=== PATIENT | female | born 1970 | race Caucasian/White ===

== ENCOUNTER 2016-06-23 11:57 | Emergency (ER) | payer OTHER ==
[~2016-06-23] VITALS: Ht 165.1 cm; Wt 122.7 kg
[~2016-06-23 11:57] MED LIST: CYCL10TA9 PO
[2016-06-23 12:01] VITALS: BP 139/91; PULSE 64; RESP 21; O2SAT 95
--- NOTE | 2016-06-23 12:04 | ED.REPORT ---
HPI-Extremity Problem Lower Date of Service June 23, 2016 ED Provider: History of Present Illness: tripped last night around 1030 at home, pain in the right foot, mid foot pain. mickey Moise is primary care, on a pain contract with him. able to walk but with difficulty. chronic back and hip pain.have not taken anything besides the vicodin. work at [employer] in the [employer] station.4/10 with sitting 10/10 with walking. Is scheduled for surgery on her left foot next Tuesday for tendonitis on the achilles. Is wearing a walking boot on the left foot. Nursing Notes Stated Complaint: FALL, HEARD RIGHT FOOT POP Chief Complaint: Extremity Trauma Nursing Notes Reviewed: Yes Allergies: Coded Allergies: Sulfa (Sulfonamide Antibiotics) (Verified Allergy, Unknown, Nausea, Vomiting, 06/23/16) Scheduled Cyclobenzaprine (Cyclobenzaprine) 10 Mg Tablet 10 MG PO TID General Time Seen by MD: 12:04 Chief Complaint Foot injury right Hx Obtained From: Patient Onset Occurred: Yesterday Past Medical History Past Medical History arthritis Reports: Hypertension, Denies: Asthma Reports: Migraines, Thyroid disease Past Surgical History eye cyst removal wisdom teeth removal D&C epicondylitis surgery Family History Reports: Cancer Smoking History Current Every Day Smoker Social History Alcohol Use: "Social" Drug Use: Denies drug use Occupation work at [employer], lives with roommate 1 story house with a ramp 06/23/2016 Ambulatory Status Independent Review of Systems Basic Review of Systems Eyes: Vision NL, No discharge : No dysuria, No frequency Psychiatric: Normal thought content Physical Exam Initial Vital Signs Vital Signs (First) Date Time Temp Pulse Resp B/P Pulse Ox O2 Delivery O2 Flow Rate FiO2 06/23/16 12:01 37.0 64 21 139/91 95 Room Air Initial VS: Reviewed, Vital signs normal General/Constitutional: Well-developed, Well-nourished Head / Eyes: Atraumatic, Normocephalic, PERRL ENT: Mucous membranes moist, Conjunctiva normal, No scleral icterus Neck: Supple, Non-tender, Full range of motion Respiratory: Breath sounds normal, Clear to auscultation, No respiratory distress Cardiovascular: Regular rate & rhythm, Heart sounds normal, Intact distal pulses Abdomen / GI: Soft, Non-tender, No guarding, No rebound, No distention Back: No CVA tenderness Lymphatic: No lymphadenopathy Upper Extremities: Vascular intact, Neuro intact, No swelling, No tenderness Skin: Warm, Dry, No cyanosis Neurologic: Alert, Oriented, Nonfocal Psychiatric: Mood/affect normal, Behavior normal, Normal thought content Lower Extremity / Pelvis / MS: Atraumatic, Inspection NL, Full range of motion , No swelling, Non-tender, No erythema mild swelling right mid foot. sensation intact distally. cap refill is less than 3 sec. FROM but with tenderness. General/Constitutional: Awake, Alert, No acute distress, Well appearing, Well developed, Well hydrated, Well nourished, Cooperative, Not toxic appearing Appearance / Presentation: Positive: Obese, morbidly Respiratory / Chest: Atraumatic, Breath sounds NL, Breath sounds = bilat, No respiratory distress Cardiovascular: Heart rate NL, Regular rhythm, Heart sounds NL Interpretation & Diagnostics X-Ray Interpretation Xray Interpretation: PROCEDURE: X-RAY RIGHT ANKLE, MINIMUM THREE VIEWS ([id number]) INDICATIONS: TRIPPED TECHNIQUE: 3 views of the ankle were acquired. COMPARISON: None. FINDINGS: Bones: No fractures or dislocations. Ankle mortise is normally aligned. No suspicious bony lesions. Soft tissues: No tibiotalar joint effusion. Achilles tendon appears normal. Soft tissue swelling. IMPRESSION: No displaced fracture seen. If there is continued pain, followup exam or additional imaging such as MRI or CT could be performed for further assessment. Dictated by: Luis VANCE Interpreted: Agnes Mcintyre MD on 06/23/2016 at 13:04 Transcribed by: ANA LAURA on 06/23/2016 at 13:04 PROCEDURE: X-RAY RIGHT FOOT COMPLETE, MINIMUM THREE VIEWS ([id number]) INDICATIONS: TRIPPED TECHNIQUE: 3 views of the foot were acquired. COMPARISON: None. FINDINGS: Bones: No fractures or dislocations. No suspicious bony lesions. Soft tissues: No tibiotalar joint effusion. Achilles tendon appears normal. IMPRESSION: No displaced fracture seen. If there is continued pain, followup exam or additional imaging such as MRI or CT could be performed for further assessment. Dictated by: Luis VANCE Interpreted: Agnes Mcintyre MD on 06/23/2016 at 13:03 Transcribed by: ANA LAURA on 06/23/2016 at 13:04 Re-Eval/Medical Decision Med Decision/Clinical Course 45 year old female presents for evualation of right foot pain after falling at home. Patient states able to walk but with difficulty. Patient has planned surgery for next tuesday for achilles tendon. Has a walking boot on the left foot. X-ray evualation is negative, exam is reassuring. No sign of compartment syndrome or fracture. Discharge & Departure Impression: Primary Impression: Foot sprain Disposition: Home Patient Instructions: Foot Sprain (ED), Crutch Instructions (ED) Additional Instructions: The x-ray of your ankle and foot are negative for any fracture.. Continue with wearing the splint. Use crutches as needed for ambulation. Continue with ice 15 minutes on and 15 minutes off for 3 to [address] Kunz and let him know what happened. Your surgery may need to be delayed. Continue with the vicodin that you are currently taking. Use ketorolac 10 mg up to 4 times a day as needed for discomfort. Referrals: Mickey Moise MD (PCP) EDSupervising Provider for APC: Kristi Álvarez MD copies to: Mickey Moise MD, Sue ARNP June 23, 2016 12:04
--- NOTE | 2016-06-23 13:04 | DRSVH ---
PROCEDURE: X-RAY RIGHT FOOT COMPLETE, MINIMUM THREE VIEWS ([id number]) INDICATIONS: TRIPPED TECHNIQUE: 3 views of the foot were acquired. COMPARISON: None. FINDINGS: Bones: No fractures or dislocations. No suspicious bony lesions. Soft tissues: No tibiotalar joint effusion. Achilles tendon appears normal. IMPRESSION: No displaced fracture seen. If there is continued pain, followup exam or additional chepe ging such as MRI or CT could be performed for further assessment. Dictated by: Luis Peña [facility] Interpreted: Agnes Mcintyre MD on 06/23/2016 at 13:03 Transcribed by: ANA LAURA on 06/23/2016 at 13:04 Approved by: Agnes Mcintyre MD, PhD on 06/23/2016 at 16:36
--- NOTE | 2016-06-23 13:04 | DRSVH ---
PROCEDURE: X-RAY RIGHT ANKLE, MINIMUM THREE VIEWS ([id number]) INDICATIONS: TRIPPED TECHNIQUE: 3 views of the ankle were acquired. COMPARISON: None. FINDINGS: Bones: No fractures or dislocations. Ankle mortise is normally aligned. No suspicious bony lesions . Soft tissues: No tibiotalar joint effusion. Achilles tendon appears normal. Soft tissue swelling. IMPRESSION: No displaced fracture seen. If there is continued pain, followup exam or additional chepe ging such as MRI or CT could be performed for further assessment. Dictated by: Luis Peña [facility] Interpreted: Agnes Mcintyre MD on 06/23/2016 at 13:04 Transcribed by: ANA LAURA on 06/23/2016 at 13:04 Approved by: Agnes Mcintyre MD, PhD on 06/23/2016 at 16:36
[2016-06-23 14:24] VITALS: BP 127/67; PULSE 87; RESP 16; O2SAT 97
[2016-07-28] MEDS ORDERED: DEP250A PO (14:33)
[2016-07-28] MEDS ORDERED: FLUO40CA12 PO (14:33)
[2016-07-28] MEDS ORDERED: LORA10CA PO (14:33)
[2016-07-28] MEDS ORDERED: NARA2.5T PO (14:33)
[2016-07-28] MEDS ORDERED: MELO-253 PO (14:33)
[2016-07-28] MEDS ORDERED: LEVO75TA4 PO (14:33)
[2016-07-28] MEDS ORDERED: SIMV40TA5 PO (14:33)
[2016-07-28] MEDS ORDERED: ALPR0.5T PO (14:33)
[2016-07-28] MEDS ORDERED: TOPI100T32 PO (14:33)
[2016-07-28] MEDS ORDERED: HYDR-3825 PO (14:33)
[2016-07-28] MEDS ORDERED: ATEN50TA PO (14:33)
[2016-07-28] MEDS ORDERED: CYCL10TA9 PO (14:33)
[2016-07-28] MEDS ORDERED: OMEP20CA11 PO (14:33)
== END 2016-06-23 14:25 | disposition home or self-care (01) ==
LOC: SED 11:57
DX: S93.601A Unspecified sprain of right foot, initial encounter (principal); W18.40XA Slipping, tripping and stumbling without falling, unspecified, initial encounter; Y93.9 Activity, unspecified; Y92.009 Unspecified place in unspecified non-institutional (private) residence as the place of occurrence of the external cause; Y99.8 Other external cause status; I10 Essential (primary) hypertension; F17.200 Nicotine dependence, unspecified, uncomplicated; Z88.2 Allergy status to sulfonamides
CPT/HCPCS: 73610; 73630; 96372; 99284; J1885

== ENCOUNTER 2016-07-30 05:55 | Day surgery (SDC) | payer OTHER ==
[~2016-07-30] VITALS: Ht 166.4 cm; Wt 122.6 kg
[2016-07-30] VITALS (10 sets, daily range): BP systolic 116–165; BP diastolic 67–94; PULSE 51–62; RESP 8–19; O2SAT 95–100
[~2016-07-30 05:55] MED LIST changes: +ALPR0.5T PO; +ATEN50TA PO; +DEP250A PO; +FLUO40CA12 PO; +HYDR-3825 PO; +LEVO75TA4 PO; +LORA10CA PO; +MELO-253 PO; +NARA2.5T PO; +OMEP20CA11 PO; +SIMV40TA5 PO; +TOPI100T32 PO
[2016-07-30] MEDS ORDERED: fentaNYL-PF 50 mCg/mL 2 mL Inj ONE (05:56)
[2016-07-30] MEDS ORDERED: Propofol 10,000 mCg/mL 20 mL Inj ONE (05:56)
[2016-07-30] MEDS ORDERED: Dexamethasone 4 mg/mL Inj ONE (05:56)
[2016-07-30] MEDS ORDERED: Succinylcholine Chloride 20 mg/mL 5 mL Inj ONE (05:56)
[2016-07-30] MEDS ORDERED: Ketamine 10 mg/mL 20 mL Inj ONE (05:56)
[2016-07-30] MEDS ORDERED: Ondansetron 2 mg/mL 2 mL Inj ONE (05:56)
[2016-07-30] MEDS ORDERED: MetoCLOpramide 5 mg/mL 2 mL Inj ONE (05:56)
[2016-07-30] MEDS: Lactated Ringer's 1,000 ML IV SCH ×2 (06:45→07:27)
[2016-07-30] MEDS ORDERED: CeFAZolin Inj 3 GM in IV Premix 1 EACH IV ONE (07:05)
--- NOTE | 2016-07-30 07:24 | PCM.HPANE ---
Patient Data Surgeon Admitting Provider: Attending Provider:Marc Mohan DPM Primary Care Physician:Akil Moise MD Other Provider:[facility] Reason for Visit Achilles Tendonosis Left Leg Ht/WT & BMI Height (Feet): 5 Height (Inches): 5.5 Weight (Kilograms): 122.6 Body Mass Index 44.00 Allergies Coded Allergies: Sulfa (Sulfonamide Antibiotics) (Verified Allergy, Unknown, Nausea, Vomiting, 06/23/16) aspirin (Verified Allergy, Unknown, excessive bruising, 07/28/16) Past Anesthesia History Anesthesia History: Denies:: Abnormal Airway, Anesthesia Reactions (cried after surgery-believes related to depression), Difficult Intubation, Fam Anesthesia Reaction (believes her father had anes reaction that weakened his health) Diabetes History Hx Diabetes?: No MRSA MRSA: No Medications Hypertension Medication: Yes Home Meds Incl Beta Carol: Yes Date Beta Carol Taken: Jul 30, 2016 Time Beta Carol Taken: 0500 Reported Medications Alprazolam (Xanax)0.5 Mg Tablet0.25 Mg PO TID PRN For Anxiety Ref 0 07/28/16 Topiramate (Topamax)100 Mg Goecsc966 Mg PO BID Ref 0 07/28/16 Simvastatin 40 Mg Hpixwg60 Mg PO HS 30 Days Ref 0 07/28/16 Fluoxetine (Prozac)40 Mg Idomwcm44 Mg PO DAILY Ref 0 07/28/16 Omeprazole 20 Mg Capsule.dr20 Mg PO DAILY Ref 0 07/28/16 Hydrocodone-Acetaminophen 7.5-325 mg 1 Each Tablet1 Tablet PO Q8H PRN For Pain Ref 0 07/28/16 Meloxicam 15 Mg Fzxlhs13 Mg PO DAILY 30 Days Ref 0 07/28/16 Levothyroxine 75 Mcg Nahcdp61 Mcg PO DAILY Ref 0 07/28/[address] (Depakote DR)250 Mg Nqehug318 Mg PO BID Ref 0 Swallowed whole without chewing to avoid local irritation of the mouth and throat. 07/28/16 Cyclobenzaprine 10 Mg Bmpayq98 Mg PO TID PRN Spasm 07/28/16 Loratadine (Claritin)10 Mg Yxogxha63 Mg PO DAILY Ref 0 07/28/16 Atenolol 50 Mg Xdwkbe80 Mg PO DAILY #30 TABLET Ref 0 07/28/16 Naratriptan (Amerge)2.5 Mg Tablet2.5 Mg PO Q4H PRN migraine MR x one only 07/28/16 Discontinued Reported Medications Cyclobenzaprine 10 Mg Neoavf27 Mg PO TID 12/23/15 History History of ENT Problems?: Yes HEENT History: Positive for:: Hearing Problem TMJ (wears nightguard) Denies:: Abnormal Airway Cataracts Difficult Intubation Dysphagia Glaucoma Sinus Problem Denture Type: None Teeth Condition: Within Normal Limits Hx of Heart Problems?: Yes Cardiovascular History: Positive for:: Hypertension Denies:: AICD Abdominal Aortic Aneurism Atrial Fibrillation Cardiac Surgery Chest Pain Congestive Heart Failure Coronary Artery Disease Edema Heart Murmur Irregular Heartbeat Pacemaker Peripheral Vascular Hx of Respiratory Problem?: No Respiratory History: Denies:: Asthma COPD Emphysema Oxygen Administration Pneumonia Tuberculosis Use of C-PAP Machine Use of Inhalers / NEBS Hx Neurologic Problems?: No Neurological History: Positive for:: Headaches Denies:: CVA Dementia Multiple Sclerosis Parkinson's Disease Seizures TIA Hx of GI Problems?: Yes Hx of Problems?: No Genitourinary History: Denies:: Kidney Stones Urinary Tract Infection Female Hx: Denies:: Currently (NEG PREG TEST) Problems with Breasts? Skin History: Denies:: History Skin Disorders? Pressure Ulcers Hx Musculoskeletal Problems?: Yes Musculoskeletal History: Positive for:: Back Injury Fibromyalgia Musculoskeletal Trauma (left achilles tendonitis ) Osteoarthritis (low back and hips) Denies:: Joint Replacement Myasthenia Gravis Hx of Psycho/Social Problems?: Yes Psycho Social History: Positive for:: Bipolar Disorder Hx Depression Hx Surgeries?: Yes (Eye cyst removal, pylonidal cyst, tennis elbow, bilateral, D&C, wisdomteeth) Hx Any Other Health Problems?: Yes Other History: Positive for:: Thyroid Disease Denies:: Cancer History Blood Transfusions: Positive for:: Accept Blood Products? Denies:: Blood Transfusions Hx Diabetes: No Hx Alcohol Use: YesAlcoholic Drinks Per Day: rarely- once monthlyHx Substance Use: No (occasional inhaled marijuana) Smoking Status: Current Every Day Smoker Have You Smoked inLast 12 mo: Yes (1/2 pack daily) Stop/Bang Treated for Sleep Apnea?: No Do You Have a CPAP Machine?: No S-Snoring: Do You Snore Loudly: No T-Tired: feel tired, fatigued: No O-Obsered: Observed not breath: No P-Blood Pressure: treated: Yes B- Body Mass Index > 35 kg/m2: Yes A- Age over 50: No N- Neck Large Circumference: No G- Gender Male: No BRINDA Total Score: 2 BRINDA Risk Assessment: Low Risk, <3 Yes Risk Assessment Category Category 1A: Patient has history of documented sleep apnea, and HAS NOT received any narcotic, sedative or anesthesia administration during this stay. Category 1B: Patient has history of documented sleep apnea, and HAS received any narcotic , sedative or anesthesia administration during this stay Category 2: Patient has SUSPECTED Obstructive Sleep Apnea, and HAS received any narcotic , sedative or anesthesia administration during this stay. Category 3: Patient has SUSPECTED Obstructive Sleep Apnea and HAS NOT received narcotic, sedative or anesthesia administration during this stay. Category 4: Outpatient in Procedural Areas with known sleep apnea or who screen positive for High Risk via the STOP/BANG questionnaire. Exam Exam Vital Signs Vital Signs Date Time Temp Pulse Resp B/P Pulse Ox O2 Delivery O2 Flow Rate FiO2 07/30/16 06:24 35.7 60 12 116/67 95 Room Air General Appearance: Oriented X3 HEENT/AIRWAY: MP 2 Lungs: Normal Air Movement Heart: Regular Rate/Rhythm Meds/Labs/Diagnostics Admission Meds Current Medications Lactated Ringer's (Lr) 1,000 ml @ 120 mls/hr Q8H20M IV Last administered on t 06:45; Start 07/30/16 at 05:00; Stop 07/30/16 at 13:19 Plan Impression Patient chart reviewed, patient interviewed and anesthestic plan with risks, benefits, and alternatives discussed, and informed consent obtained. ASA Physical Status: ASA3 Severe Disease Anesthetic Plan: GA Bene/Risks/Altern/Consents: Yes HP Complete Prior to Induction: Yes Heriberto Baird MD Jul 30, 2016 07:24
[2016-07-30] MEDS ORDERED: Bupivacaine-MPF 0.5% 30 mL Inj INFILTRATE ONE (07:45)
[2016-07-30] MEDS ORDERED: Lactated Ringer's 500 ML IV PRN (08:02)
[2016-07-30] MEDS ORDERED: Lactated Ringer's 1,000 ML IV SCH (08:02)
[2016-07-30] MEDS ORDERED: fentaNYL-PF 50 mCg/mL 2 mL Inj IVPUSH PRN (08:05)
[2016-07-30] MEDS ORDERED: EPHEDrine Sulfate 50 mg/mL Inj IVPUSH PRN (08:05)
[2016-07-30] MEDS ORDERED: Phenylephrine 10,000 mCg/mL Inj IVPUSH PRN (08:05)
[2016-07-30] MEDS ORDERED: Ondansetron 2 mg/mL 2 mL Inj IVPUSH PRN (08:05)
[2016-07-30] MEDS ORDERED: HYDROmorphone 1 mg/mL Inj IVPUSH PRN (08:05)
[2016-07-30] MEDS ORDERED: Dexamethasone 4 mg/mL Inj IVPUSH PRN (08:05)
[2016-07-30] MEDS ORDERED: MetoCLOpramide 5 mg/mL 2 mL Inj IVPUSH PRN (08:05)
[2016-07-30] MEDS ORDERED: HYDROcodone-APAP 5-325 mg Tablet PO PRN (09:20)
--- NOTE | 2016-07-30 09:23 | PCM.PODPO ---
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 The patient was transported into the operating room and placed on the operating room table in the prone position. Prior to positioning the patient was placed under general anesthesia by the anesthesia service. The patient was then prepped and draped in the normal aseptic technique. 10 mL half percent Marcaine plain was injected around the surgical site of the distal left Achilles tendon. A #15 blade was utilized to make a linear incision approximately 10 cm in length over the distal Achilles and posterior calcaneus. Once that initially her skin all subcutaneous neurovascular structures were identified and retracted out of the surgical field. Dissection was carried down with a Metzenbaum scissor to identify peritenon. The peritenon was incised with a #15 blade and carefully resected both medially and laterally exposing the underlying tendon. The area of tendinosis was identified as the Achilles midsubstance approximately 2 cm proximal to the superior portion of the Achilles tendon. A #15 blade was used to make an elliptical incision excising the mid substance of the thickened Achilles which showed a mild amount of fatty degeneration. The distal aspect of this incision was carried laterally distally with a through and through cut of the distal Achilles tendon extending to its insertion. The Achilles tendon was reflected both medially and laterally of approximately 80% of its insertion into the posterior calcaneal body. The Antonia's deformity was identified. The Antonia's deformity was sharply resected with a osteotome and mallet. A mild amount of local fat tissue was resected with a rongeur. This wound was ankle was a flush with large amounts of normal saline. The Achilles tendon was reattached to the posterior aspect of the calcaneus utilizing an Arthrex speed bridge knotless anchor system in the normal surgical technique. The midline of the Achilles tendon was repaired utilizing #2 FiberWire. Peritenon was repaired utilizing number 3. 0 Vicryl subcutaneous closure was performed utilizing number 3. 0 Vicryl and skin closure was performed utilizing number 3. 0 Prolene. The wound was then dressed with Adaptic 4 x 4's Kerlix and the patient was placed into a mildly compressive Sanches compression dressing with a posterior splint. No complications occurred during this procedure. The patient was transported back into the supine position on the gurney and extubated by anesthesia. The patient was then transported out of the operating room. Grafts, Implants: Implants-See Implant Record Complications There were no periprocedural complications identified. Condition Stable Anesthetic Administered: GA Catheters: None Output, Estimated Blood Loss: 30 Blood Admin during surgery: No Surgical Cast or Splint: Well-padded Short Leg Splint Surgical Specimen Removed: No Specimen sent to Pathology: No Post Operative Plan Ice and elevate left lower extremity Nonweightbearing left lower extremity Keep dressing clean dry and intact Follow-up in 1 week Advance diet as tolerated Discharged to home when stable Marc Mohan DPM Jul 30, 2016 09:23
--- NOTE | 2016-07-30 09:29 | PCM.ANEP1 ---
Post Anesthesia PACU Phase 1 Assessment Vital Signs Vital Signs Date Time Temp Pulse Resp B/P Pulse Ox O2 Delivery O2 Flow Rate FiO2 07/30/16 09:20 36.5 52 8 142/88 98 Simple Mask 8 07/30/16 06:24 35.7 60 12 116/67 95 Room Air Anesthetic Administered: GA Level of Alertness: Awake, talking Pain: No Nausea or Vomiting: No CV Function & Hydration Stable: Yes Airway Device: Lungs: Normal Air Movement PACU Phase 2 Assessment Patient Instructions Provided: N/A Heriberto Baird MD Jul 30, 2016 09:29
[2016-07-30] MEDS ORDERED: HYDROcodone-APAP 5-325 mg Tablet PO ONE ×2 (11:00→11:40)
== END 2016-07-30 23:59 | disposition home or self-care (01) ==
LOC: SAS 05:55
PROVIDERS: ATTEND Podiatrist Foot & Ankle Surgery
DX: M76.62 Achilles tendinitis, left leg (principal); M77.32 Calcaneal spur, left foot; M92.62 Juvenile osteochondrosis of tarsus, left ankle; I10 Essential (primary) hypertension; E78.5 Hyperlipidemia, unspecified; F41.9 Anxiety disorder, unspecified; F31.9 Bipolar disorder, unspecified; E03.9 Hypothyroidism, unspecified; E66.01 Morbid (severe) obesity due to excess calories; M79.7 Fibromyalgia; M19.90 Unspecified osteoarthritis, unspecified site; F12.90 Cannabis use, unspecified, uncomplicated; F17.210 Nicotine dependence, cigarettes, uncomplicated; Z68.41 Body mass index [BMI] 40.0-44.9, adult
CPT/HCPCS: 27650; 28119; C1713; J0330; J0690; J1100; J2250; J2405; J2765; J3010; J7120